=== PATIENT | male | born 1980 | race Caucasian/White ===

== ENCOUNTER 2020-03-13 22:24 | Emergency (ER) | payer MEDICAID ==
[~2020-03-13] VITALS: Ht 185.4 cm; Wt 81.6 kg
[2020-03-13 22:29] VITALS: Ht 185.4 cm; Wt 81.6 kg
[2020-03-13 23:46] LABS: BASOPHIL % 0.4 % (0-2); PLATELET COUNT 265 x10^3mcL (130-400); RED CELL DISTRIBUTION WIDTH 14.4 % (11.5-14.5)
[2020-03-13 23:57] LABS: CALCIUM 8.4 mg/dL (8.5-10.1); CARBON DIOXIDE 30.9 mmol/L (21-32); CHLORIDE SERUM 103 mmol/L (98-107); CREATININE SERUM 0.8 mg/dL (0.7-1.3); GFR1 > 60 mL/min; GLUCOSE SERUM 104 mg/dL (74-106); POTASSIUM SERUM 3.6 mmol/L (3.5-5.1); SODIUM SERUM 139 mmol/L (136-145)
[2020-03-14 00:01] LABS: ALKALINE PHOSPHATASE 73 U/L (46-116); ALT/SGPT 34 U/L (16-63); AST/SGOT 34 U/L (15-37); BILIRUBIN TOTAL 0.4 mg/dL (0.20-1.00)
[2020-03-14 00:02] LABS: ALBUMIN 2.5 g/dL (3.4-5.0)
[2020-03-14 00:53] LABS: AMPHETAMINE QUAL UR NONE DETECTED (See below)
[2020-03-14 03:50] VITALS: BP 102/52
== END 2020-03-14 03:50 | disposition home or self-care (01) ==
LOC: ED 22:24
PROVIDERS: Emergency Medicine
DX: R15.9 Full incontinence of feces (principal); R19.7 Diarrhea, unspecified; R05 Cough; R45.851 Suicidal ideations; Z59.0 Homelessness
CPT/HCPCS: 36415; G0480; Q0092

== ENCOUNTER 2020-03-28 14:10 | Emergency (ER) | payer MEDICAID ==
[~2020-03-28] VITALS: Ht 185.4 cm; Wt 72.6 kg
[2020-03-28 14:53] VITALS: Ht 185.4 cm; Wt 72.6 kg
[2020-03-28 17:18] VITALS: BP 137/89
== END 2020-03-28 17:18 | disposition home or self-care (01) ==
LOC: ED 14:10
DX: F20.9 Schizophrenia, unspecified (principal); F31.9 Bipolar disorder, unspecified